=== PATIENT | male | born 1930 | race Caucasian/White ===

== ENCOUNTER 2016-05-28 20:50 | Emergency (ER) | payer MEDICARE ==
[2016-05-28 21:03] VITALS: BP 143/66
[2016-05-28] MEDS ORDERED: Naproxen TAB* 250 MG PO ONE (21:48)
--- NOTE | 2016-05-28 21:53 | ED ---
Upper Extremity Pain - HPI Summary HPI Summary: 85 male presents with complaints of a lump on his right elbow that he noticed today 05/28/16 while showering. He denies any pain, redness, and warmth of the area. He does not recall any trauma or injury. He has never had this before and denies left elbow symptoms. Denies fever/chills. Has not taken any medication for this. - History of Current Complaint Chief Complaint: EDExtremityUpper Stated Complaint: LUMP ABOVE RIGHT ELBOW Time Seen by Provider: 05/28/16 21:06 Hx Obtained From: Patient Mechanism Of Injury: Unknown Onset/Duration: Started Hours Ago Timing: Constant Severity Currently: None Pain Location: Elbow Alleviating Factor(s): Rest Associated Signs & Symptoms: Positive: Swelling - Allergies/Home Medications Allergies/Adverse Reactions: Allergies Allergy/AdvReac Type Severity Reaction Status Date / Time No Known Allergies Allergy Verified 05/28/16 21:19 PMH/Surg Hx/FS Hx/Imm Hx Cardiovascular History: Reports: Hx Pacemaker/ICD Denies: Hx Hypertension Respiratory History: Denies: Hx Asthma, Hx Chronic Obstructive Pulmonary Disease (COPD) Musculoskeletal History: Reports: Hx Back Problems - Surgical History Other Surgical History: none - Immunization History Immunizations Up to Date: Yes Infectious Disease History: No Infectious Disease History: Denies: Traveled Outside the [place] in Last 30 Days - Family History Known Family History: Positive: Cardiac Disease - Social History Alcohol Use: None Substance Use Type: Reports: None Smoking Status (MU): Never Smoked Tobacco Review of Systems Constitutional: Negative Eyes: Negative ENT: Negative Cardiovascular: Negative Respiratory: Negative Gastrointestinal: Negative Genitourinary: Negative Positive: Edema - right elbow Skin: Negative Neurological: Negative Psychological: Normal All Other Systems Reviewed And Are Negative: Yes Physical Exam Triage Information Reviewed: Yes Vital Signs On Initial Exam: Initial Vitals Temp Pulse Resp BP Pulse Ox 97.6 F 61 17 143/66 100 05/28/16 20:59 05/28/16 20:59 05/28/16 20:59 05/28/16 20:59 05/28/16 20:59 Vital Signs Reviewed: Yes Appearance: Positive: Well-Appearing, No Pain Distress, Well-Nourished Skin: Positive: Warm, Skin Color Reflects Adequate Perfusion, Dry Head/Face: Positive: Normal Head/Face Inspection Eyes: Positive: Normal, Conjunctiva Inflammed - right eye erythema, chronic ENT: Positive: Normal ENT inspection, Hearing grossly normal Neck: Positive: Supple, Nontender Respiratory/Lung Sounds: Positive: Clear to Auscultation, Breath Sounds Present Cardiovascular: Positive: Normal, RRR, Pulses are Symmetrical in both Upper and Lower Extremities - 2+ radial Musculoskeletal: Positive: Normal, Strength/ROM Intact, Edema Right - appears to be olecranon bursitis without redness, warmth and is non tender. does not appear to be infectious at this time. did educate patient on symptoms to be aware of. no trauma or injury no x-ray needed.. Negative: Pain @, Edema Left Neurological: Positive: Normal, Sensory/Motor Intact, Alert, Oriented to Person Place, Time Psychiatric: Positive: Normal, Affect/Mood Appropriate Diagnostics - Vital Signs Vital Signs Temp Pulse Resp BP Pulse Ox 05/28/16 20:59 97.6 F 61 17 143/66 100 - Laboratory Lab Statement: Any lab studies that have been ordered have been reviewed, and results considered in the medical decision making process. Course/Dx - Course Course Of Treatment: patient was given first dose of naproxen while in ED. told to continue this twice a day at home. vincenzo bandage applied for support and pressure. instructed not to lean on and put pressure on elbow. aware of worsening signs and symptoms or infection. ortho follow up. educated on future treatment and concave orthosis. - Diagnoses Differential Diagnosis/HQI/PQRI: Positive: Bursitis, Contusion, Hematoma, Strain , Sprain Provider Diagnoses: Olecranon bursitis of right elbow Discharge - Discharge Plan Condition: Stable Disposition: HOME Patient Education Materials: Elbow Bursitis (ED), Elbow Bursitis Exercises (GEN ) Referrals: Gerhard Vargas MD [Primary Care Provider] - Randy Tam MD [Medical Doctor] - Additional Instructions: Take OTC Aleve one tab twice daily to help treat this bursitis. Applying cushions or pads when applying pressure to the elbow is important to prevent worsening. Use vincenzo bandage to apply pressure to the area. Call and make an appointment with Orthopedics or PCP for further treatment, brace and possible drainage. Watch for signs of infection such as fever, chills, redness, increased swelling, warmth and tender to touch. If these occur be sure to seek medical attention promptly.
== END 2016-05-28 22:23 | disposition home or self-care (01) ==
LOC: ED 20:50
DX: M70.21 Olecranon bursitis, right elbow (principal); Z95.0 Presence of cardiac pacemaker
CPT/HCPCS: 99281; A9270-GY

== ENCOUNTER 2016-11-04 12:07 | Inpatient (IN) | payer MEDICARE ==
[2016-11-04 13:50] LABS: Hematocrit 40 % (42-52); Hemoglobin 13.6 g/dl (14.0-18.0); Mean Corpuscular HGB Conc 34 g/dl (31-36); Mean Corpuscular Hemoglobin 31 pg (27-31); Mean Corpuscular Volume 92 fL (80-94); Mean Platelet Volume 9 um3 (7.4-10.4); Red Blood Count 4.39 10^6/ul (4.0-5.4); Red Cell Distribution Width 13 % (10.5-15); White Blood Count 7.5 10^3/ul (3.5-10.8)
--- NOTE | 2016-11-04 13:58 | RAD ---
HISTORY: Dizziness COMPARISONS: November 01, 2011 VIEWS:1: Single frontal portable view of the chest at 1:30 PM FINDINGS: LINES AND TUBES: A left-sided pacemaker is noted CARDIOMEDIASTINAL SILHOUETTE: The aorta is tortuous. The cardiomediastinal silhouette is otherwise normal for portable technique. 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 LUNG PARENCHYMA: There is hyperinflation. ABDOMEN: Again noted is a moderate hiatal hernia. BONES AND SOFT TISSUES: No bone or soft tissue abnormalities are noted. IMPRESSION: HYPERINFLATION. NO ACTIVE CARDIOPULMONARY DISEASE.
--- NOTE | 2016-11-04 14:04 | RAD ---
HISTORY: Right leg pain COMPARISONS: None relevant TECHNIQUE: Multiple transverse and longitudinal ultrasound images were obtained of the right lower extremity from the level of the common femoral vein inferiorly through to the infrapopliteal veins using grayscale, color Doppler, and spectral Doppler imaging with and without compression and with augmentation. Comparison images were obtained of the contralateral common femoral vein. FINDINGS: VEINS: The venous system of the right lower extremity is compressible throughout its course, with normal flow on color Doppler imaging and normal response to augmentation on spectral Doppler imaging. SOFT TISSUES: Unremarkable. OTHER FINDINGS: None. IMPRESSION: NO RIGHT LOWER EXTREMITY DEEP VEIN THROMBOSIS
[2016-11-04 14:08] LABS: Albumin 3.6 g/dL (3.2-5.2); BUN/Creatinine Ratio 20.8 (8-20); Calcium 9.5 mg/dL (8.6-10.3); EGFR African American 95.5 (>60); EGFR Non-African American 74.3 (>60); Globulin 2.9 g/dL (2-4); Magnesium 2.1 mg/dL (1.9-2.7); Potassium 4.2 mmol/L (3.5-5.0); Total Bilirubin 0.7 mg/dL (0.2-1.0); Total Protein 6.5 g/dL (6.4-8.9)
--- NOTE | 2016-11-04 14:19 | RAD ---
HISTORY: Dizziness COMPARISONS: November 04, 2011 TECHNIQUE: Multiple contiguous axial CT scans were obtained of the head without intravenous contrast. FINDINGS: HEMORRHAGE/INFARCT: There is no hemorrhage or acute infarct. MASSES/SHIFT: There is no mass or shift. EXTRA-AXIAL SPACES: There are no extra-axial fluid collections. SULCI AND VENTRICLES: The sulci and ventricles are normal in size and position for the patient's stated age. CEREBRUM: There is a chronic lacunar infarct of the left thalamus BRAINSTEM: There are no focal parenchymal abnormalities. CEREBELLUM: There are no focal parenchymal abnormalities. VESSELS: There is calcification of the cavernous segments of the internal carotid arteries bilaterally and of the distal right renal artery. 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 PARANASAL SINUSES: The paranasal sinuses are clear. ORBITS: The orbits are unremarkable. BONES AND SOFT TISSUE: No bone or soft tissue abnormalities are noted. OTHER: None IMPRESSION: NO ACUTE INTRACRANIAL PATHOLOGY.
[2016-11-04] MEDS ORDERED: Acetaminophen TAB* 325 MG PO PRN (15:39)
[2016-11-04] MEDS ORDERED: Ondansetron INJ* 2 MG/ML VIAL IV PRN (15:39)
[2016-11-04] MEDS ORDERED: Iohexol 350* (CONTRAST) 500 ML MDV IV ONE (16:00)
--- NOTE | 2016-11-04 16:43 | RAD ---
HISTORY: Chest pain, weakness, dizziness COMPARISONS: None TECHNIQUE: Multiple contiguous axial CT scans of the chest were obtained after the administration of nonionic intravenous contrast, timed to the pulmonary arterial phase of contrast enhancement.. Coronal and sagittal multiplanar reformations are also submitted for review. FINDINGS: NECK AND THYROID: The lower neck and thyroid are unremarkable. CHEST WALL: There is no lower cervical, axillary, or supraclavicular lymphadenopathy by size criteria. Left-sided pacemaker is noted. HEART AND PERICARDIUM: The heart is unremarkable. AORTA AND PULMONARY VASCULATURE: There is no pulmonary arterial filling defect to suggest pulmonary embolism. There is no linear filling defect within the aorta to suggest aortic dissection. MEDIASTINUM: There is no mediastinal lymphadenopathy by size criteria. DEMARCUS: There is no hilar lymphadenopathy by size criteria. AIRWAY AND ESOPHAGUS: There is a moderate-sized paraesophageal hiatal hernia. LUNG PARENCHYMA: The lungs are clear. PLEURA: No pleural abnormalities are noted. UPPER ABDOMEN: As noted above, there is a hiatal hernia. BONES AND SOFT TISSUES: Degenerative changes are noted of the spine OTHER: None. IMPRESSION: 1. NO PULMONARY ARTERIAL FILLING DEFECTS TO SUGGEST PULMONARY EMBOLISM. 2. HIATAL HERNIA.
--- NOTE | 2016-11-04 16:48 | ED ---
Kassy Frances Edward, scribed for MarceloRoger on 11/04/16 at 1321 . HPI Chest Pain - HPI Summary HPI Summary: 86 y/o male presents to ED c/o CP located on the R side starting a couple of days ago. Pt has not had CP this morning. The pain is rated 1/10 in severity at triage. Associated sx: intermittent pain on inside of R thigh, intermittent episodes of dizziness and unsteady gait, pedal edema. PMHx strokes. SHx stents. Former smoker. - History of Current Complaint Chief Complaint: EDWeakness Time Seen by Provider: 11/04/16 13:05 Hx Obtained From: Patient Onset/Duration: Started Days Ago Current Severity: Mild Pain Intensity: 1 Pain Scale Used: 0-10 Numeric Chest Pain Location: Right Lateral Associated Signs and Symptoms: Positive: Chest Pain, Dizziness - and unsteady gait, Edema - Bilateral pedal, Other: - Pain @ inside R thigh - Allergy/Home Medications Allergies/Adverse Reactions: Allergies Allergy/AdvReac Type Severity Reaction Status Date / Time Codeine Allergy Unknown Verified 11/04/16 12:15 Reaction Details PMH/Surg Hx/FS Hx/Imm Hx Previously Healthy: No Cardiovascular History: Reports: Hx Pacemaker/ICD Denies: Hx Hypertension Respiratory History: Denies: Hx Asthma, Hx Chronic Obstructive Pulmonary Disease (COPD) Musculoskeletal History: Reports: Hx Back Problems Infectious Disease History: Denies: Traveled Outside the [place] in Last 30 Days - Family History Known Family History: Positive: Cardiac Disease - Social History Alcohol Use: None Hx Substance Use: No Substance Use Type: Reports: None Hx Tobacco Use: No Smoking Status (MU): Never Smoked Tobacco Review of Systems Constitutional: Negative Eyes: Negative ENT: Negative Positive: Chest Pain Respiratory: Negative Gastrointestinal: Negative Genitourinary: Negative Musculoskeletal: Other - Pain @ inside of R thigh Positive: Edema - bilateral pedal edema Skin: Negative Neurological: Other - Dizziness and unsteady gait Psychological: Normal All Other Systems Reviewed And Are Negative: Yes Physical Exam Triage Information Reviewed: Yes Vital Signs On Initial Exam: Initial Vitals Temp Pulse Resp BP Pulse Ox 99.1 F 61 16 152/72 97 11/04/16 12:15 11/04/16 12:15 11/04/16 12:15 11/04/16 12:15 11/04/16 12:15 Vital Signs Reviewed: Yes Appearance: Positive: Well-Appearing, No Pain Distress Skin: Positive: Warm, Skin Color Reflects Adequate Perfusion, Dry Head/Face: Positive: Normal Head/Face Inspection Eyes: Positive: EOMI, KELLY ENT: Positive: Normal ENT inspection Neck: Positive: Supple, Nontender Respiratory/Lung Sounds: Positive: Clear to Auscultation, Breath Sounds Present Cardiovascular: Positive: RRR, Pulses are Symmetrical in both Upper and Lower Extremities Abdomen Description: Positive: Nontender, Soft Bowel Sounds: Positive: Present Musculoskeletal: Positive: Strength/ROM Intact, Edema Left - Legs, Edema Right - Legs Neurological: Positive: Normal, Sensory/Motor Intact, Alert, Oriented to Person Place, Time Diagnostics - Vital Signs Vital Signs Temp Pulse Resp BP Pulse Ox 11/04/16 12:15 99.1 F 61 16 152/72 97 - Laboratory Result Diagrams: 11/04/16 13:36 11/04/16 13:36 Lab Statement: Any lab studies that have been ordered have been reviewed, and results considered in the medical decision making process. - Radiology CXR Xray Interpretation: No Acute Changes - HYPERINFLATION. NO ACTIVE CARDIOPULMONARY DISEASE. ED PHYSICIAN AGREEABLE Radiology Interpretation Completed By: Radiologist - CT BRAIN CT CT Interpretation: No Acute Changes - NO ACUTE INTRACRANIAL PATHOLOGY. ED PHYSICIAN AGREEABLE CT Interpretation Completed By: Radiologist - Ultrasound No standard instances Ultrasound Interpretation: No Acute Changes - MADELIN DOPPLER - NO RIGHT LOWER EXTREMITY DEEP VEIN THROMBOSIS. ED PHYSICIAN AGREEABLE Ultrasound Interpretation Completed By: Radiologist - EKG 1 EKG Interpretation: 12:25 - PACED RHYTHM @ 60 BPM. NO STEMI Chest Pain Course/Dx - Course Assessment/Plan: 86 y/o male presents to ED c/o CP located on the R side starting a couple of days ago. Pt has not had CP this morning. The pain is rated 1/10 in severity at triage. Associated sx: intermittent pain on inside of R thigh, intermittent episodes of dizziness and unsteady gait, pedal edema. PMHx strokes. SHx stents. Former smoker. EKG 12:25 - PACED RHYTHM @ 60 BPM. NO STEMI. CXR SHOWS HYPERINFLATION. NO ACTIVE CARDIOPULMONARY DISEASE. MADELIN DOPPLER SHOWS NO RIGHT LOWER EXTREMITY DEEP VEIN THROMBOSIS. BRAIN CT SHOWS NO ACUTE INTRACRANIAL PATHOLOGY. LABS DONE. SPOKE WITH MARYANNE CARABALLO, WHO AGREED TO ADMIT TO [facility] [place]. R/O [place]. - Diagnoses Provider Diagnoses: Chest pain, rule out acute myocardial infarction, Dizziness - Provider Notifications Discussed Care Of Patient With: Ernestina Bender Time Discussed With Above Provider: 15:00 Instructed by Provider To: Admit As Inpatient Discharge - Discharge Plan Condition: Stable Disposition: ADMITTED TO [facility] Referrals: Gerhard Vargas MD [Primary Care Provider] - The documentation as recorded by the Kassy cunningham Edward accurately reflects the service I personally performed and the decisions made by Marcelo hu Emmanuel.
--- NOTE | 2016-11-04 17:02 | RAD ---
HISTORY: Dizziness COMPARISONS: Head CT dated November 04, 2016, CTA dated November 07, 2011 TECHNIQUE: Multiple contiguous axial CT scans were obtained of the head and neck After the administration of nonionic intravenous contrast timed to the systemic arterial phase of contrast enhancement. Coronal and sagittal multiplanar reformations are submitted for review. Multiple 3-D maximum intensity projection reconstructions are also submitted for review. FINDINGS: CTA NECK: AORTIC ARCH: The aortic arch is not completely visualized within the [id number] the current examination. There is no proximal stenosis of the cephalic great vessels. RIGHT VERTEBRAL ARTERY: The right vertebral artery is patent along its course, without stenosis. LEFT VERTEBRAL ARTERY: The left vertebral artery is patent along its course, without stenosis. DOMINANCE: The right vertebral artery is dominant. RIGHT COMMON CAROTID ARTERY: The right common carotid artery is patent. The right carotid bifurcation occurs at C3-C4 RIGHT INTERNAL CAROTID ARTERY: There is atheromatous disease of the right carotid bifurcation, without right internal carotid artery stenosis by NASCET criteria. RIGHT EXTERNAL CAROTID ARTERY: The right external carotid artery is unremarkable. LEFT COMMON CAROTID ARTERY: The left common carotid artery is patent. The left carotid bifurcation occurs at C3-C4 LEFT INTERNAL CAROTID ARTERY: There is atheromatous disease of the left carotid bifurcation, without left internal carotid artery stenosis by NASCET criteria. LEFT EXTERNAL CAROTID ARTERY: The left external carotid artery is unremarkable. VENOUS CIRCULATION: The venous system is unremarkable. SALIVARY GLANDS: The parotid glands, submandibular glands, sublingual glands are normal. NASAL CAVITY/NASOPHARYNX: The nasal cavity and nasopharynx are normal. ORAL CAVITY/OROPHARYNX: The oral cavity is obscured by streak artifact from dental amalgam. The visualized oral cavity and oropharynx are unremarkable. LARYNGEAL APPARATUS/HYPOPHARYNX: The laryngeal apparatus and hypopharynx are normal. UPPER AIRWAY/UPPER ESOPHAGUS: The visualized upper airway and esophagus are normal. LUNG APICES: The lung apices are clear. THYROID GLAND: The thyroid gland is normal. LYMPH NODES: There is no lymphadenopathy by size criteria. BONES AND SOFT TISSUES: Degenerative changes are noted of the cervical spine. CTA HEAD: INTRACRANIAL CIRCULATION: Again noted is atherosclerosis of the distal right vertebral artery and basilar artery with dolichoectasia of the vertebrobasilar system. There is nonopacification of the distal V4 segment of the left vertebral artery distal to the left posterior inferior cerebellar artery.. Elsewhere, there is no aneurysm, vascular reformation, occlusion, or stenosis of the intracranial circulation. The anterior communicating artery complex is clear. Bilateral posterior communicating arteries are identified. VENOUS CIRCULATION: The venous system is unremarkable. PERFUSION: There is no obvious parenchymal perfusion deficit. HEMORRHAGE/INFARCT: There is no hemorrhage or acute infarct. MASSES/SHIFT: There is no mass or shift. EXTRA-AXIAL SPACES: There are no extra-axial fluid collections. SULCI AND VENTRICLES: The sulci and ventricles are normal in size and position for the patient's stated age. CEREBRUM: Again noted is a chronic lacunar infarct of the left thalamus. BRAINSTEM: There are no focal parenchymal abnormalities. CEREBELLUM: There are no focal parenchymal abnormalities. PARANASAL SINUSES: There is mucosal thickening of the maxillary sinuses bilaterally. ORBITS: The orbits are unremarkable. BONES AND SOFT TISSUE: No bone or soft tissue abnormalities are noted. OTHER: There is no abnormal enhancement. IMPRESSION: 1. 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 2. 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 4. NO INTERNAL CAROTID ARTERY STENOSIS BY NASCET CRITERIA. CPT II Codes: 3100F
--- NOTE | 2016-11-04 17:12 | HP ---
CC: Dr. Vargas * HISTORY AND PHYSICAL: DATE OF ADMISSION: 11/04/16 PRIMARY CARE PROVIDER: Dr. Vargas ATTENDING PHYSICIAN WHILE IN THE HOSPITAL: Ernestina Bender MD * (report dictated by Devon Irvin NP). CHIEF COMPLAINT: 1. Chest pain. 2. Dizziness. HISTORY OF PRESENT ILLNESS: Mr. Medina is an 86-year-old male patient who has a history of hypertension, hyperlipidemia, CVA, CAD, and a history of AK requiring stents. He has had heart catheterization x2. He comes in to the ER today. He states that yesterday he has been feeling intermittently dizzy. It is not worse with position. He states that it can happen when he is standing, it can happen when he is lying down. He states he just feels lightheaded. He denied feeling nauseated with this or having any shortness of breath. He states it can last an hour or minutes. He is not having any symptoms now. He denies having any vision symptoms. He denies having any weakness to one side. No facial drooping. No trouble with speech. In addition to this, he also noted today, which concerned him, is that he is having some right-sided chest discomfort and he describes it is just a dull ache, which is now gone. When he had the chest discomfort, he had no associated shortness of breath. There is no radiation of the pain. The pain went away on its own. There were no alleviating factors. He said it did not get worse with taking a deep breath and he denies any recent travel. He also did admit to having some right thigh pain that is now gone. He states he did not pass out. He denies having any recent fevers or chills. He states he has not been feeling congested, but there was concern because of the chest discomfort. He has a history and risk factors for acute coronary syndrome and because of the dizziness, hospitalist service was asked to evaluate for admission. PAST MEDICAL HISTORY: Significant for: 1. Hypertension. 2. Hyperlipidemia. 3. CVA. 4. CAD. 5. AK. PAST SURGICAL HISTORY: He has had cardiac cath x2. MEDICATIONS: Home meds, according to his recall, and we are going to try to get an accurate list, the family is going to bring it in. What I could get from the patient includes: 1. Aspirin 162 mg p.o. daily. 2. Flomax 0.4 mg p.o. at bedtime. 3. Crestor 20 mg at bedtime. 4. Metoprolol tartrate 25 mg daily. 5. Gabapentin 300 mg p.o. b.i.d. ALLERGIES TO MEDICATIONS: Include no known drug allergies. FAMILY HISTORY: His mother at the age of 92, he thinks of old age. The father had a history of CVA and AK. SOCIAL HISTORY: The patient does not smoke. He does not drink. He lives with his . Surrogate decision maker is his daughter. REVIEW OF SYSTEMS: There is no documented fever. He denied having any significant weight change. There was no double vision. There is no ear discharge. He denies having any rhinorrhea. There is no sore throat, no thyroid enlargement. Denies having any chest pain. There is no orthopnea. There is no nocturnal dyspnea. There is no abdominal pain. No nausea, no vomiting, no dysuria, no frequency. There is no seizure. Denied any loss of consciousness. No pruritus and no skin ulcerations. Review of 14 systems was completed; all others negative. PHYSICAL EXAMINATION GENERAL: At this time, Mr. Medina is an 86-year-old male patient. He appears to be well nourished, well developed. He does not appear to be in any acute distress. VITAL SIGNS: Blood pressure 135/70 with a pulse of 60, respirations 16, his O2 sat was 100%, his temperature was 99.1. HEENT: Head is atraumatic, normocephalic. Eyes: EOMs are intact. Sclerae are anicteric and not pale. Throat: Oral mucosa appears to be moist. No oropharyngeal erythema. NECK: Supple. LUNGS: Clear to auscultation bilaterally. There were no wheezes, rales, or rhonchi. HEART: Sounds S1, S2. Regular rate and rhythm. No murmurs, rubs, or gallops. ABDOMEN: Soft, flat, nontender. Bowel sounds are present. EXTREMITIES: Pulses were 2+ throughout. He is able to move all 4 extremities with 5/5 strength. NEUROLOGIC: He is awake, he is alert, he is oriented x3. Tongue is midline. Senior Java Engineer are equal. No gross focal deficits. Speech is clear. Kkhfns-qy-zwkp and xuwk-gy-decj were both intact bilaterally. No deficits were noted. Visual gonsalez were intact. SKIN: Intact. LABORATORY DATA/DIAGNOSTIC STUDIES: The labs today revealed a WBC of 7.5, RBC of 4.39, hemoglobin 13.6, hematocrit of 40, and platelet count of 172. INR was 0.96. PTT was 27.9. D-dimer of 419. Sodium 139, potassium 4.2, chloride of 104 , bicarb 30, BUN 20, creatinine 0.96, glucose is 89. Lactate 0.6. Calcium 9.5. Total bili 0.7. Mag 2.1. AST 22, ALT 19, alk phos 63. Troponin 0. BNP 107. Albumin 3.6. Urine is pending. He had a venous Doppler study obtained today, which revealed no right lower extremity DVT. He had a brain CT obtained today as well, which revealed no acute intracranial pathology. He had a chest x-ray obtained today. I did review it myself, I did not appreciate any infiltrates or effusions. Radiology read this as hyperinflation, no active cardiopulmonary disease. EKG does show a paced rhythm. This appeared to be atrioventricular paced at a rate of 60. Old medical records were reviewed. ASSESSMENT AND PLAN: Mr. Medina is an 86-year-old male patient coming into the ER today with complaints of feeling dizzy and chest pain. He will be admitted under observation status for: 1. Dizziness. Again at this point, I would like to place him on telemetry to monitor for any arrhythmias. I will get a CTA of his head and neck to just assess the posterior circulation. In addition to this, I also will get orthostatics and in addition to this, we will check an echo and continue to follow. 2. Chest pain. I will cycle his troponins. The D-dimer was mildly elevated. A CTA of the chest is pending. 3. Hypertension. Continue meds as prescribed. 4. Hyperlipidemia. Continue statin. 5. History of cerebrovascular accident. Continue with secondary prevention and he is on aspirin and statin. 6. Coronary artery disease. He is on aspirin, statin, and beta-maty, continue. 7. DVT prophylaxis. He will be on heparin subcu. 8. Code status. Full code. 9. Fluids, electrolytes, and nutrition. He can have a heart healthy diet. TIME SPENT: Time spent on admission 60 minutes; greater than half the time spent [id number] with the patient, obtaining my history and physical, the other half the time was spent going over the plan of care with the patient and implementing the plan of care. I did discuss the plan of care with my attending, Dr. Bender; she is in agreement. DEVON IRVIN, JERILYN [id number]/[facility] #: [id number] DEANNA
[2016-11-04 18:09] LABS: Urine Bilirubin Negative (Negative); Urine Glucose Negative (Negative); Urine Nitrite Negative (Negative)
--- NOTE | 2016-11-04 19:44 | RAD ---
HISTORY: Fall, right elbow pain COMPARISONS: None VIEWS: 2, Frontal and lateral views of the right elbow FINDINGS: BONE DENSITY: There is diffuse osteopenia. BONES: There is no displaced fracture. JOINTS: There is no arthropathy. ALIGNMENT: There is no dislocation. SOFT TISSUES: Unremarkable. OTHER FINDINGS: None. IMPRESSION: OSTEOPENIA. NO ACUTE OSSEOUS INJURY. THE DEGREE OF OSTEOPENIA MAY MAKE A NONDISPLACED FRACTURE RADIOGRAPHICALLY OCCULT. IF SYMPTOMS PERSIST, RECOMMEND REPEAT IMAGING.
[2016-11-04] MEDS: Clopidogrel TAB* 75 MG PO SCH (21:12)
[2016-11-04] MEDS: Atorvastatin* 40 MG TAB PO SCH (21:13)
[2016-11-04] MEDS: Gabapentin CAP(*) 300 MG PO SCH (21:13)
[2016-11-04] MEDS: Tamsulosin CAP* 0.4 MG PO SCH (21:14)
[2016-11-04] MEDS: Heparin VIAL(*) 5000 UNITS/ML VIAL (FIVE THOUSAND) SUBCUT SCH (21:16)
[2016-11-05 05:29] LABS: Hematocrit 38 % (42-52); Hemoglobin 12.8 g/dl (14.0-18.0); Mean Corpuscular HGB Conc 34 g/dl (31-36); Mean Corpuscular Hemoglobin 31 pg (27-31); Mean Corpuscular Volume 92 fL (80-94); Mean Platelet Volume 8 um3 (7.4-10.4); Red Blood Count 4.17 10^6/ul (4.0-5.4); Red Cell Distribution Width 14 % (10.5-15); White Blood Count 6.5 10^3/ul (3.5-10.8)
[2016-11-05 05:43] LABS: BUN/Creatinine Ratio 20.9 (8-20); Calcium 9.1 mg/dL (8.6-10.3); EGFR African American 108.4 (>60); EGFR Non-African American 84.3 (>60); HDL Cholesterol 42.1 mg/dL
[2016-11-05] MEDS: Heparin VIAL(*) 5000 UNITS/ML VIAL (FIVE THOUSAND) SUBCUT SCH ×3 (06:27→21:28)
[2016-11-05] MEDS: Clopidogrel TAB* 75 MG PO SCH (08:36)
[2016-11-05] MEDS: Aspirin EC Low Dose* 81 MG TAB.EC PO SCH (08:36)
[2016-11-05] MEDS: Metoprolol Tartrate TAB* 25 MG PO SCH (08:36)
--- NOTE | 2016-11-05 16:19 | PN ---
Subjective Date of Service: 11/05/16 Interval History: Patient feeling improved and anxious to go home as soon as possible. Objective Active Medications: Acetaminophen (Tylenol Tab*) 650 mg PO Q4H PRN PRN Reason: FEVER/PAIN Aspirin (Aspirin Ec Low Dose*) 162 mg PO DAILY [facility] Last Admin: 11/05/16 08:36 Dose: 162 mg Atorvastatin Calcium (Lipitor*) 40 mg PO BEDTIME [facility] PRN Reason: Protocol Last Admin: 11/04/16 21:13 Dose: 40 mg Clopidogrel Bisulfate (Plavix Tab*) 75 mg PO DAILY [facility] Last Admin: 11/05/16 08:36 Dose: 75 mg Gabapentin (Neurontin Cap(*)) 300 mg PO BEDTIME [facility] Last Admin: 11/04/16 21:13 Dose: 300 mg Heparin Sodium (Porcine) (Heparin Vial(*)) 5,000 units SUBCUT Q8HR [facility] Last Admin: 11/05/16 13:47 Dose: 5,000 units Metoprolol Tartrate (Lopressor Tab*) 25 mg PO DAILY [facility] Last Admin: 11/05/16 08:36 Dose: 25 mg Ondansetron HCl (Zofran Inj*) 4 mg IV Q6H PRN PRN Reason: NAUSEA Tamsulosin HCl (Flomax Cap*) 0.4 mg PO BEDTIME [facility] Last Admin: 11/04/16 21:14 Dose: 0.4 mg Vital Signs 11/04/16 11/04/16 11/04/16 16:50 17:57 18:07 Temperature 96.8 F 97.5 F Pulse Rate 59 61 Respiratory 22 18 Rate Blood Pressure 157/73 157/70 136/74 (mmHg) O2 Sat by Pulse 100 100 Oximetry 11/04/16 11/04/16 11/04/16 18:21 18:37 18:51 Temperature Pulse Rate Respiratory Rate Blood Pressure 129/65 115/58 124/60 (mmHg) O2 Sat by Pulse Oximetry 11/04/16 11/04/16 11/04/16 19:06 19:20 19:22 Temperature Pulse Rate Respiratory Rate Blood Pressure 146/52 139/60 141/59 (mmHg) O2 Sat by Pulse Oximetry 11/04/16 11/04/16 11/04/16 19:37 19:51 20:06 Temperature Pulse Rate Respiratory Rate Blood Pressure 125/65 117/59 123/58 (mmHg) O2 Sat by Pulse Oximetry 11/04/16 11/04/16 11/04/16 20:21 20:36 20:51 Temperature Pulse Rate Respiratory Rate Blood Pressure 132/64 137/66 129/65 (mmHg) O2 Sat by Pulse Oximetry 11/04/16 11/04/16 11/04/16 21:06 21:13 21:21 Temperature Pulse Rate Respiratory 18 Rate Blood Pressure 123/64 127/70 (mmHg) O2 Sat by Pulse Oximetry 11/04/16 11/04/16 11/04/16 21:36 21:52 22:06 Temperature Pulse Rate Respiratory Rate Blood Pressure 140/67 120/66 127/68 (mmHg) O2 Sat by Pulse Oximetry 11/04/16 11/04/16 11/04/16 22:36 22:44 23:13 Temperature Pulse Rate Respiratory 18 Rate Blood Pressure 147/71 132/62 (mmHg) O2 Sat by Pulse Oximetry 11/05/16 11/05/16 11/05/16 00:37 02:36 04:02 Temperature 98.3 F Pulse Rate 60 Respiratory 18 Rate Blood Pressure 137/66 122/63 128/46 (mmHg) O2 Sat by Pulse 96 Oximetry 11/05/16 11/05/16 11/05/16 04:03 04:05 07:40 Temperature 97.5 F Pulse Rate 70 80 60 Respiratory 18 Rate Blood Pressure 111/59 130/77 128/65 (mmHg) O2 Sat by Pulse 97 Oximetry 11/05/16 11/05/16 11:19 11:22 Temperature 97.5 F Pulse Rate 59 57 Respiratory 20 Rate Blood Pressure 134/65 121/60 (mmHg) O2 Sat by Pulse 98 99 Oximetry Oxygen Devices in Use Now: None Appearance: Elderly gentleman sitting up in his chair in NAD. Eyes: No Scleral Icterus Ears/Nose/Mouth/Throat: Mucous Membranes Moist Neck: No Thyroid Enlargement, Masses Respiratory: Clear to Auscultation Cardiovascular: - - S1S2 damien Abdominal: NL Sounds; No Tenderness; No Distention, No Hepatosplenomegaly Lymphatic: No Cervical Adenopathy Extremities: No Clubbing, Cyanosis Skin: No Rash or Ulcers Neurological: Alert and Oriented x 3 Result Diagrams: 11/05/16 05:19 11/05/16 05:19 Assess/Plan/Problems-Billing Assessment: 86 year old gentleman who presented to [facility] with a chief complaint of chest pain and dizziness. - Patient Problems (1) Chest pain Current Visit: Yes Status: Acute Code(s): R07.9 - CHEST PAIN, UNSPECIFIED SNOMED Code(s): 28484063 Comment: CTA of chest is negative. Trops negative. For Echo in AM (2) Dizziness Current Visit: Yes Status: Acute Code(s): R42 - DIZZINESS AND GIDDINESS SNOMED Code(s): 764169634 Comment: Again - Echo in AM. Can dc after if still asymptomatic. (3) Hypertension Current Visit: Yes Status: Acute Code(s): I10 - ESSENTIAL (PRIMARY) HYPERTENSION SNOMED Code(s): 65616462 Comment: Well controlled. Monitor. (4) DVT prophylaxis Current Visit: Yes Status: Acute Code(s): YKA6947 - SNOMED Code(s): 935612907 Comment: Heparin sq (5) Full code status Current Visit: Yes Status: Acute Code(s): Z78.9 - OTHER SPECIFIED HEALTH STATUS SNOMED Code(s): 681445269
[2016-11-05] MEDS: Gabapentin CAP(*) 300 MG PO SCH (21:28)
[2016-11-05] MEDS: Atorvastatin* 40 MG TAB PO SCH (21:28)
[2016-11-05] MEDS: Tamsulosin CAP* 0.4 MG PO SCH (21:28)
--- NOTE | 2016-11-06 04:21 | CONS ---
NEUROLOGY CONSULTATION: DATE OF CONSULT: 11/05/16 LOCATION: He is an inpatient in room 439. REFERRING PROVIDER: Devon Irvin NP PRIMARY CARE PROVIDER: Gerhard Vargas MD CHIEF COMPLAINT: Dizziness. HISTORY OF PRESENT ILLNESS: Duy Medina is a delightful 86-year-old right- handed man, who presented to the hospital yesterday with sense of dizziness and some chest discomfort. He has had some right-sided chest pain and a sense of dizziness, which began apparently about a day or so before. The dizziness was feeling of faintness, but not of room spinning. It would come and go and seem unaffected by what he was doing at the time. He did not lose consciousness. There is no diaphoresis with it. He became concerned and presented to the emergency room and so it was decided to admit him. He has a history of a prior stroke and he forgets the details if this has affected his memory. 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 He has history of coronary artery disease, with stenting; hyperlipidemia; hypertension. MEDICATIONS: At home consist of: 1. Aspirin 162 mg p.o. q. day. 2. Flomax 0.4 mg p.o. q.h.s. 3. Crestor 20 mg p.o. q.h.s. 4. Metoprolol 25 mg p.o. q. day. 5. Gabapentin 300 mg p.o. b.i.d. ALLERGIES: He does not have any drug allergies. SOCIAL HISTORY: He lives at home with his , who is bed-bound and has advanced dementia. He has aides 7 hours a day and his family helps out. His daughter is an RN. He does not smoke and he does not drink alcohol. REVIEW OF SYSTEMS: Notable for poor memory. He ambulates with a walker or a cane. He has not had any recent falls. No headaches or change in vision. He denies numbness of his face or limbs. He has not noticed any incoordination in his upper extremities recently. He has chronic joint pain. His weight has been very pretty stable. He has not noticed any fevers or sweats lately. PHYSICAL EXAM: He is well-nourished and well-hydrated elderly gentleman, lying in his hospital bed. He has been afebrile throughout his hospital stay. Blood pressure is running typically about 130-140/60-80. Heart rates in the 60s and seems regular and respiratory rate 16. Oxygen saturations 99% on room air. Lungs are clear bilaterally. Heart is in a regular rhythm with distant heart tones and I do not hear any murmurs. Carotid pulses are present and there are no anterior or posterior cervical bruits. Oral mucosa is moist and atraumatic. He has arthritic changes in his hands. Neurological Exam: Pupils react equally from about barely 3 mm to 2.25 mm. Eye movements are full without nystagmus. Visual gonsalez are full to confrontation. Funduscopic exam reveals silver wiring, but sharp discs and no hemorrhages. There is no ptosis. Facial musculature is symmetric. Facial sensation to pin, light touch, and temperature is symmetric. Palate rises symmetrically and tongue protrudes in the midline. There is no dysarthria. He is a little hard of hearing bilaterally. Motor exam reveals paratonia in the limbs, but no spasticity or rigidity. There is no drift in the limbs and reasonably good resistive strength proximally and distally in upper and lower extremities. Finger taps are limited by arthritis, but are symmetrical. Pnlxjk-cr-hudk maneuver is symmetric as well. I did not attempt to ambulate him. There is no rest tremor. Reflexes are hypoactive in the upper extremities and absent in knees and ankles. Plantar responses are flexor bilaterally. He is alert and oriented and a fairly good historian, able to provide reasonably good remote history. Memory is somewhat impaired. He has good fund of knowledge. He becomes tearful at the end of the visit expressing desire to get home to care for his of 61 years. DIAGNOSTIC STUDIES/LAB DATA: Reviewed includes a CT of the brain revealing a left thalamic infarction. CT angiogram reveals non-visualization of the left vertebral artery, interpreted as a distal high-grade stenosis or occlusion. There is a large and patent right vertebral and basilar artery. There are atherosclerotic changes in the carotid system, but no significant stenosis. Other laboratory data is notable for unremarkable CBC with a hemoglobin of 12.8 , chemistry profile notable for hemoglobin A1c of 5.7%, and a normal chemistry profile. Cholesterol this morning is 117 and LDL 57. IMPRESSION AND PLAN: Impression is that of some nonspecific dizziness in an elderly gentleman with prior cerebrovascular disease. He does have either high - grade left distal vertebral stenosis or occlusion, but it appears to be the non- dominant vertebral as the right is quite large and patent. unlikely he is having vertebral basilar attacks. Nevertheless, he has been started on Plavix yesterday on that possibility and he is currently on dual-antiplatelet therapy. I think it is reasonable to switch him to Plavix monotherapy at discharge. He has pacer and so an MRI is not feasible. Unless he has new or worsening symptoms, then I think I would finish the cardiac workup and discharge him on Plavix. [id number]/[facility] #: [id number] DEANNA
[2016-11-06] MEDS: Heparin VIAL(*) 5000 UNITS/ML VIAL (FIVE THOUSAND) SUBCUT SCH (05:59)
[2016-11-06] MEDS: Metoprolol Tartrate TAB* 25 MG PO SCH (08:49)
[2016-11-06] MEDS: Clopidogrel TAB* 75 MG PO SCH (08:49)
[2016-11-06] MEDS: Aspirin EC Low Dose* 81 MG TAB.EC PO SCH (08:49)
--- NOTE | 2016-11-06 10:56 | ECHO ---
Patient: ALEAH BOSCH [facility] Rec#: [id number] : 1930 Date: 11/06/2016 Age: 86y Height: 177.8 cm / 70.0 in Weight: 82.55 kg / 181.9 lbs Sex: M BSA: 2.01 Room#: 439 Admit Date#: 11/04/2016 Type: Inpatient Referring: Devon Irvin NP Reading: Chilo Donald MD Firmware Software Verification Engineer: Flor Morgan DIONI CC: Gerhrad Vargas MD Transthoracic Echocardiogram Indication: CAD BP: 144/74 HR: 65 Rhythm: NSR Findings History: HTN,HLD,CVA,CAD, LA with PCI. Technical Comments: The study quality is good. Completed at 1023. Left Ventricle: The left ventricular chamber size is normal. Septal wall hypertrophy is observed. Global left ventricular wall motion and contractility are within normal limits. There is normal left ventricular systolic function. The estimated ejection fraction is 55-60%. 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 Abnormal left ventricular diastolic function is observed. Left Atrium: The left atrial chamber size is normal. Right Ventricle: The right ventricular cavity size is normal. The right ventricular global systolic function is normal. The septum has abnormal paradoxical motion consistent with RV pacemaker. A pacemaker wire is visualized in the right ventricle. Right Atrium: The right atrium is mild to moderately dilated. Aortic Valve: The aortic valve is trileaflet. There is no evidence of aortic valve thickening. There is a trace of aortic regurgitation. There is no evidence of aortic stenosis. Mitral Valve: The mitral valve leaflets are mildly thickened. There is a trace of mitral regurgitation. There is no evidence of mitral stenosis. Tricuspid Valve: The tricuspid valve leaflets are normal. There is mild tricuspid regurgitation. No pulmonary hypertension is noted. There is no tricuspid stenosis. Pulmonic Valve: The pulmonic valve appears normal. There is no evidence of pulmonic regurgitation. There is no pulmonic stenosis. Pericardium: The pericardium appears normal. Aorta: There is no dilatation of the ascending aorta. The aortic arch is not well visualized. There is mild dilatation of the aortic root. Pulmonary Artery: The main pulmonary artery appears normal. Venous: The inferior vena cava appears normal in size. There is a greater than 50% respiratory change in the inferior vena cava dimension. Conclusions Global left ventricular wall motion and contractility are within normal limits. There is normal left ventricular systolic function. The estimated ejection fraction is 55-60%. 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 A pacemaker wire is visualized in the right ventricle. There is a trace of aortic regurgitation. There is a trace of mitral regurgitation. There is mild tricuspid regurgitation. No pulmonary hypertension is noted. The pericardium appears normal. Measurements Name Value Normal Range RVIDd (AP) 2D 2.4 cm (0.9 - 2.6) RVDdMajor (2D) 4.1 cm (2.2 - 4.4) RAd ISD 4CH 5.1 cm (3.4 - 4.9) RA (A4C)W 4.8 cm (2.9 - 4.6) IVSd (2D) 1.3 cm (0.6 - 1) LVPWd (2D) 1 cm (0.6 - 1) LVIDd (2D) 4.1 cm (3.6 - 5.4) LVIDs (2D) 2.6 cm - LV FS (2D) 36 % (25 - 45) Aortic Annulus 2.1 cm (1.4 - 2.6) Ao root diameter (2D) 3.9 cm (2.1 - 3.5) Ascending Ao 3.2 cm (2.1 - 3.4) LA dimension (AP) 2D 2.9 cm (2.3 - 3.8) LAd ISD 4CH 4.2 cm (2.9 - 5.3) LA ISD 4CH W 5.2 cm (2.5 - 4.5) Name Value Normal Range LA ESV SP 4CH (A/L) 42 ml - LA ESV SP 2CH (A/L) 38 ml - LA ESV BP (A/L) 53 ml - LA ESV BP (A/L) index 26.23 ml/m2 - LA ESV SP 4CH (MOD) 42 ml - LA ESV SP 2CH (MOD) 33 ml - Name Value Normal Range MV E-wave Vmax 0.6 m/sec - MV deceleration time 307 msec - MV A-wave Vmax 1 m/sec - MV E:A ratio 0.58 ratio - LV septal e' Vmax 0.05 m/sec - LV lateral e' Vmax 0.05 m/sec - LV E:e' septal ratio 12 ratio - LV E:e' lateral ratio 12 ratio - Name Value Normal Range AV Vmax 1.2 m/sec - AV VTI 24.6 cm - AV peak gradient 6.08 mmHg - AV mean gradient 2.71 mmHg - LVOT Vmax 0.9 m/sec - LVOT VTI 19.56 cm - LVOT peak gradient 3.34 mmHg - LVOT mean gradient 1.39 mmHg - AR PHT 454 msec - AR peak gradient 41.68 mmHg - Name Value Normal Range TR Vmax 2.4 m/sec - TR peak gradient 23 mmHg - RAP 3 mmHg - RVSP 26 mmHg - IVC diameter 1.8 cm - Name Value Normal Range PV Vmax 0.6 m/sec - PV peak gradient 1.67 mmHg -
[2016-11-06 12:03] VITALS: BP 133/67
--- NOTE | 2016-11-07 02:50 | DS ---
CC: Dr. Gerhard Vargas; Dr. Ramirez * DISCHARGE SUMMARY: DATE OF ADMISSION: 11/04/16 DATE OF DISCHARGE: 11/06/16 ADMISSION DIAGNOSES: 1. Chest pain. 2. Dizziness. SECONDARY DIAGNOSES: 1. Hypertension 2. Hyperlipidemia. 3. History of cerebrovascular accident. 4. Coronary artery disease. DISCHARGE DIAGNOSES: 1. Hypertension 2. Hyperlipidemia. 3. History of cerebrovascular accident. 4. Coronary artery disease. HOSPITAL COURSE: The patient is an 86-year-old gentleman, who presented to [facility] with a chief complaint of chest pain and dizziness. Please see H and P for further details. The patient was admitted, ruled out for an IA with serial troponins. The patient also had a CTA of his chest, which was negative for pulmonary embolism. He had a brain CT, which was unremarkable. The patient also had transthoracic echocardiogram, which was unremarkable and it did not explain any of the aforementioned symptoms. Furthermore, the patient's symptoms cleared up. He did have a CTA of his head, which was somewhat concerning because it did show a potential high-grade stenosis of the left distal vertebral artery, but according to Neurology, this was apparently the nondominant vertebral as the right is quite large and patent , it was unlikely to have vertebrobasilar attacks from this. The patient was feeling well and anxious to go home and stable for discharge to home on with close followup with his PCP. PHYSICAL EXAMINATION: On the date of discharge, well-developed, well-nourished , gentleman sitting up in bed, in no acute distress. Vital Signs: Temperature 97.8 degrees, heart rate 61 beats per minute, respiratory rate 18 breaths per minute, pulse ox 97%, blood pressure is 133/67. HEENT: Normocephalic, atraumatic. Pupils equal, round, and reactive. Moist mucous membranes. Neck: Supple. No JVD, bruits, palpable thyroid, or lymphadenopathy. Chest: Clear to auscultation and percussion bilaterally. Cardiovascular Exam: S1 and S2 appreciated. Abdominal Exam: Positive bowel sounds in all 4 quadrants. Soft, nontender, and nondistended. Extremities: No cyanosis or clubbing. +2 peripheral pulses bilaterally. Neuro: Alert and oriented x3. Moves all extremities. Skin: No rashes or distinct abnormalities. STUDIES DONE WHILE IN THE HOSPITAL: Chest x-ray, 11/04/16, interpretation by Radiology shows hyperinflation, no active cardiopulmonary disease. Brain CT, 11/04/16, interpretation by Radiology is no acute intracranial pathology. Venous duplex, 11/04/16, interpretation by Radiology is no right lower extremity DVT. His chest CTA, 11/04/16, interpretation by Radiology, no pulmonary arterial defects to suggest pulmonary embolism, hiatal hernia. Head CTA, 11/04/16, interpretation by Radiology, there is non-enhancement of the distal V4 segment of the left vertebral artery distal to the origin of the left posterior inferior cerebral artery, which may indicate occlusion versus high-grade stenosis of the distal left vertebral artery, atherosclerosis, dolichoectasia of the vertebrobasilar system, no internal carotid artery stenosis by NASCET criteria. Transthoracic echocardiogram, 11/04/16, as interpreted by Radiology: Global left ventricular wall motion and contractility within normal limits, normal left ventricular systolic function, estimated ejection fraction 55% to 60%, abnormal ventricular septal wall motion with right ventricular pacemaker. Pacemaker is visualized in the right ventricle. Trace aortic regurg, trace mitral regurg, mild tricuspid regurg. No pulmonary hypertension is noted. The pericardium appears normal. Elbow x-ray, 11/04/16, interpretation by Radiology is osteopenia, no acute osseous injury. The degree of osteopenia may make a nondisplaced fracture radiographically occult recommend repeat imaging. DISCHARGE MEDICATIONS: 1. Tamsulosin 0.4 mg at bedtime. 2. Crestor 20 mg at bedtime. 3. Metoprolol tartrate 25 mg daily. 4. Gabapentin 300 mg at bedtime. 5. Plavix 75 mg daily. DISCHARGE PLAN: The patient will be discharged home and follow with his PCP within 1 week. The patient will return to the ED if symptoms recur. TIME SPENT: Over 40 minutes was spent on this discharge, more than 25 minutes of which was spent in direct [id number] contact with the patient in evaluation , physical exam, counseling, and coordination of care. [id number]/[facility] #: [id number] DEANNA
== END 2016-11-06 15:41 | disposition home or self-care (01) | DRG 313 ==
LOC: ED 12:07 → MEDTELE 15:35 → OBSVTOIN 11-05 16:13
PROVIDERS: ADMIT Internal Medicine; ATTEND Internal Medicine
DX: R07.9 Chest pain, unspecified (principal); E78.5 Hyperlipidemia, unspecified; I25.10 Atherosclerotic heart disease of native coronary artery without angina pectoris; I65.02 Occlusion and stenosis of left vertebral artery; I10 Essential (primary) hypertension; R42 Dizziness and giddiness; Z87.891 Personal history of nicotine dependence; Z86.73 Personal history of transient ischemic attack (TIA), and cerebral infarction without residual deficits; Z88.6 Allergy status to analgesic agent; Z95.0 Presence of cardiac pacemaker; Z82.49 Family history of ischemic heart disease and other diseases of the circulatory system; I25.2 Old myocardial infarction; Z95.5 Presence of coronary angioplasty implant and graft; Z82.3 Family history of stroke
CPT/HCPCS: 36415; 70450; 70496; 70498; 71010; 71275; 80048; 80053; 80061; 81003; 83036; 83605; 83735; 83880; 84484; 85025; 85379; 85610; 85730; 93005; A9270-GY; G0378; J1644; Q9967

== ENCOUNTER 2018-08-28 15:20 | Emergency (ER) | payer MEDICARE ==
--- NOTE | 2018-08-28 19:13 | ED ---
Upper Extremity Pain - HPI Summary HPI Summary: This pt is an 87 y/o M presenting to [facility] accompanied by a friend with a CC of L shoulder pain following a fall. The pt fell out of a chair today after falling asleep and has had pain to his L shoulder ever since. He reports pain to palpation and ROM. He denies any head injuries or neck injuries and is not in any respiratory distress. He uses a walker to ambulate and has to crawl up his stairs in order to stand with his walker after falling. His has dementia and is bed ridden. He has a Hx of a pacemaker and swelling in his legs. He has no aggravating or alleviating symptoms. - History of Current Complaint Chief Complaint: EDFall Stated Complaint: FALL/LT SHOULDER INJURY PER PT Time Seen by Provider: 08/28/18 16:46 Hx Obtained From: Patient Mechanism Of Injury: Fall From Height Of: - was sitting in a chair Onset/Duration: Started Hours Ago Timing: Constant Severity Initially: Moderate Severity Currently: Moderate Pain Location: Collar - L shoulder, L collar Aggravating Factor(s): Movement, Internal/External Rotation Alleviating Factor(s): Nothing Associated Signs & Symptoms: Positive: Negative - respitory distress, Other - pain with ROM, pain with palpation,. Negative: Back Pain, Neck Pain - Allergies/Home Medications Allergies/Adverse Reactions: Allergies Allergy/AdvReac Type Severity Reaction Status Date / Time codeine Allergy Unknown Verified 08/28/18 15:28 Reaction Details PMH/Surg Hx/FS Hx/Imm Hx Previously Healthy: No Endocrine/Hematology History: Denies: Hx Diabetes Cardiovascular History: Reports: Hx Pacemaker/ICD Denies: Hx Hypertension Respiratory History: Denies: Hx Asthma, Hx Chronic Obstructive Pulmonary Disease (COPD) History: Denies: Hx Renal Disease Musculoskeletal History: Reports: Hx Back Problems Sensory History: Reports: Hx Contacts or Glasses Denies: Hx Hearing Aid Opthamlomology History: Reports: Hx Contacts or Glasses - Surgical History Surgery Procedure, Year, and Place: PACEMAKER Infectious Disease History: No Infectious Disease History: Denies: Traveled Outside the [place] in Last 30 Days - Family History Known Family History: Positive: Cardiac Disease - Social History Alcohol Use: None Hx Substance Use: No Substance Use Type: Reports: None Hx Tobacco Use: No Smoking Status (MU): Former Smoker Type: Cigarettes, Cigars, Pipe Have You Smoked in the Last Year: No Review of Systems ENT: Negative - Neck injuries Respiratory: Negative - Respitory distress Musculoskeletal: Negative - head injury Positive: Other - L shoulder pain with ROM and palpation All Other Systems Reviewed And Are Negative: Yes Physical Exam - Summary Physical Exam Summary: Constitutional: Well-developed, Well-nourished, Alert. (-) Distressed Skin: Warm, Dry HENT: Normocephalic; Atraumatic Eyes: Conjunctiva normal Neck: Musculoskeletal ROM normal neck. (-) JVD, (-) Stridor, (-) Tracheal deviation Cardio: Rhythm regular, rate normal, Heart sounds normal; Intact distal pulses; The pedal pulses are 2+ and symmetric. Radial pulses are 2+ and symmetric. (-) Murmur Pulmonary/Chest wall: Effort normal. (-) Respiratory distress, (-) Wheezes, (-) Rales Abd: Soft, (-) tenderness, (-) Distension, (-) Guarding, (-) Rebound Musculoskeletal: bilateral pitting edema in his lower extremity, tenderness to palpation of shoulder at the acromioclavicular junction, good rom Lymph: (-) Cervical adenopathy Neuro: Alert, Oriented x3 Psych: Mood and affect Normal Triage Information Reviewed: Yes Vital Signs On Initial Exam: Initial Vitals Temp Pulse Resp BP Pulse Ox 97.7 F 72 18 176/95 96 08/28/18 15:24 08/28/18 15:24 08/28/18 15:24 08/28/18 15:24 08/28/18 15:24 Vital Signs Reviewed: Yes Diagnostics - Vital Signs Vital Signs Temp Pulse Resp BP Pulse Ox 08/28/18 15:24 97.7 F 72 18 176/95 96 - Laboratory Lab Statement: Any lab studies that have been ordered have been reviewed, and results considered in the medical decision making process. - Radiology shoulder x-ray Radiology Interpretation Completed By: ED Physician Summary of Radiographic Findings: No acute injuries. Pending offical approval. Course/Dx - Course Course Of Treatment: This pt is an 87 y/o M presenting to [facility] accompanied by a friend with a CC of L shoulder pain following a fall. The pt fell out of a chair today after falling asleep and has had pain to his L shoulder ever since. He reports pain to palpation and ROM. He denies any head injuries or neck injuries and is not in any respiratory distress. Upon his PE the pt is found to have bilateral pitting edema in his lower extremity, tenderness to palpation of shoulder at the acromioclavicular junction and good range of motion. The pt had a shoulder X-Ray which found no acute injuries. He had no abnormal lab values and with be discharged home with a Dx of a shoulder contusion. He was instructed to follow up with his PCP and return to the ED with any new or worsening symptoms. - Diagnoses Provider Diagnoses: Contusion of left shoulder Discharge - Sign-Out/Discharge Documenting (check all that apply): Patient Departure - discharge Patient Received Moderate/Deep Sedation with Procedure: No - Discharge Plan Condition: Stable Disposition: HOME Patient Education Materials: Contusion in Adults (ED) Print Language: MONGOLIAN Referrals: Gerhard Vargas MD [Primary Care Provider] - Natalya Levy MD [Medical Doctor] - Additional Instructions: Call Dr. Levy, Orthopedic Surgery, if symptoms persist. - Billing Disposition and Condition Condition: STABLE Disposition: Home - Attestation Statements Document Initiated by Timothy: Yes Documenting Scribe: Peewee Padilla Provider For Whom Timothy is Documenting (Include Credential): Darlin Mccoy MD Scribe Attestation: IPeewee, scribed for Darlin Brandon MD on 08/28/18 at 2203. Scribe Documentation Reviewed: Yes Provider Attestation: The documentation as recorded by the Peewee cunningham accurately reflects the service I personally performed and the decisions made by me, Darlin Brandon MD Status of Scribe Document: Viewed
[2018-08-28 19:45] VITALS: BP 161/91
== END 2018-08-28 19:44 | disposition home or self-care (01) ==
LOC: ED 15:20
DX: S40.012A Contusion of left shoulder, initial encounter (principal); W07.XXXA Fall from chair, initial encounter; Z87.891 Personal history of nicotine dependence
CPT/HCPCS: 99281